=== PATIENT | male | born 1955 | race Caucasian/White ===

== ENCOUNTER → 2017-08-15 | Outpatient (CLI) | payer BC ==
[~2017-08-15] MED LIST: ASPIR 8181 MG PO; BYSTOLIC5 MG PO; CRESTOR5 MG PO; DIOVAN160 MG PO; DIOVAN320 MG PO; DIOVAN80 MG PO; LOVAZA1 GM PO; METOPROLOL SUCC25 MG PO; TRIAMTERENE PO
--- NOTE | 2017-08-15 16:16 | Diagnostic Imaging Report ---
PROCEDURE:X-RAY ABDOMEN - KUB COMPARISON:Abdomen x-ray 08/07/15, abdomen x-ray 02/04/17 INDICATIONS:KIDNEY STONE FINDINGS: Calcifications: There are 3 calcifications in the expected location of the right renal shadow. These are similar in position and size compared to the 2015 x-ray. The largest measures 4 mm. No new calculi are identified. There no calcifications related to the course of the ureter. 2 calcifications in the expected location of the left renal shadow. The larger measures 4 mm. The smaller measures 2 mm. These are not conclusively identified on previous exam. BOWEL GAS PATTERN:Non-specific bowel gas pattern. No dilated bowel loops. CALCIFICATIONS:There are atherosclerotic calcifications of the aorta and iliac arteries. Bones: Unremarkable for age. Lung bases: Clear. CONCLUSION: Three calculi in the expected location of the right kidney are stable. Two calculi in the expected location of the left kidney appear to be new. Dictated by: Christina Sierra M.D. on 08/15/2017 at 16:24 Electronically approved by: Christina Sierra M.D. on 08/15/2017 at 16:24
== END ==
LOC: RAD 14:48
PROVIDERS: ATTEND Urology
DX: N20.0 Calculus of kidney (principal)
CPT/HCPCS: 74000

== ENCOUNTER → 2018-05-29 | Outpatient (CLI) | payer BC ==
[2018-05-29 09:02] LABS: ALANINE AMINOTRANSFERASE 34 IU/L (0-55); ALBUMIN 3.9 g/dL (3.5-5.0); ALKALINE PHOSPHATASE 48 IU/L (40-150); ANION GAP 13.8 mmol/L (8-16); BILIRUBIN,DIRECT 0.8 mg/dL (0.0-0.5); BLOOD UREA NITROGEN 21 mg/dL (7-26); BUN/CREATININE RATIO 19 (6-25); CALCIUM 9.5 mg/dL (8.4-10.2); CARBON DIOXIDE 25 mmol/L (22-29); CHLORIDE 107 mmol/L (98-107); CHOL/HDL RATIO 2.4 (3.9-4.7); CHOLESTEROL 131 MD/DL (0-199); CREATINE KINASE 148 IU/L (30-200); EST GLOMERULAR FILTRATION RATE > 60 ML/MIN (60-); GLUCOSE 133 mg/dL (74-118); HDL CHOLESTEROL 54 MG/DL (40-60); LDL CHOLESTEROL 57 MG/DL (60-130); POTASSIUM 4.8 mmol/L (3.5-5.1); SODIUM 141 mmol/L (136-145); TRIGLYCERIDES 99 MG/DL (0-149)
--- NOTE | 2018-05-29 09:14 | Diagnostic Imaging Report ---
PROCEDURE: Frontal and lateral views of the chest. COMPARISON: Chest radiograph 06/24/17. INDICATIONS: CHEST COMPLAINT FINDINGS: Lines/tubes: None. Lungs: The lungs are well inflated and clear. There is no evidence of pneumonia or pulmonary edema. Pleura: There is no pleural effusion or pneumothorax. Heart and mediastinum: The cardiomediastinal silhouette is unchanged. Moderate hiatal hernia is present. Bones: No acute bony abnormality. IMPRESSION: No acute radiographic abnormality. Dictated by: MIGUEL CORONADO M.D. on 05/29/2018 at 9:22 Electronically approved by: MIGUEL CORONADO M.D. on 05/29/2018 at 9:22
== END ==
LOC: RAD 08:15
PROVIDERS: ATTEND Internal Medicine Cardiovascular Disease
DX: J98.09 Other diseases of bronchus, not elsewhere classified (principal); E78.5 Hyperlipidemia, unspecified; R73.03 Prediabetes; R00.1 Bradycardia, unspecified
CPT/HCPCS: 36415; 71046; 80048; 80061; 80076; 82550; 83036

== ENCOUNTER → 2020-08-30 | Outpatient (CLI) | payer MEDICARE | LOC: US 15:35 | PROVIDERS: ATTEND Urology | DX: N50.812 Left testicular pain (principal); N50.811 Right testicular pain; G89.29 Other chronic pain | CPT/HCPCS: 76870; 93976 ==

== ENCOUNTER → 2020-09-27 | Outpatient (CLI) | payer MEDICARE ==
[2020-09-27 15:21] LABS: ALANINE AMINOTRANSFERASE 23 IU/L (0-55); ALBUMIN 4.3 g/dL (3.5-5.0); ALBUMIN/GLOBULIN RATIO 1.3 (0.8-2.0); ALKALINE PHOSPHATASE 52 IU/L (40-150); ANION GAP 16.5 mmol/L (8-16); BLOOD UREA NITROGEN 32 mg/dL (7-26); BUN/CREATININE RATIO 29 (6-25); CALCIUM 9.2 mg/dL (8.4-10.2); CARBON DIOXIDE 23 mmol/L (22-29); CHLORIDE 105 mmol/L (98-107); CHOL/HDL RATIO 3.3 (3.9-4.7); CHOLESTEROL 153 MD/DL (0-199); CREATINE KINASE 194 IU/L (30-200); EST GLOMERULAR FILTRATION RATE > 60 ML/MIN (60-); GLUCOSE 103 mg/dL (74-118); HDL CHOLESTEROL 46 MG/DL (40-60); LDL CHOLESTEROL 93 MG/DL (60-130); POTASSIUM 4.5 mmol/L (3.5-5.1); SODIUM 140 mmol/L (136-145); TRIGLYCERIDES 72 MG/DL (0-149)
== END ==
LOC: LAB 14:42
PROVIDERS: ATTEND Internal Medicine Cardiovascular Disease
DX: E78.5 Hyperlipidemia, unspecified (principal); R55 Syncope and collapse; I10 Essential (primary) hypertension; R73.03 Prediabetes; R00.1 Bradycardia, unspecified
CPT/HCPCS: 36415; 80053; 80061; 82550; 83036

== ENCOUNTER 2021-02-07 17:07 | Emergency (ER) | payer MEDICARE ==
[~2021-02-07] VITALS: Ht 170.2 cm; Wt 73.5 kg
== END 2021-02-07 18:00 | disposition home or self-care (01) ==
LOC: FSED 17:50
DX: T20.46XA Corrosion of unspecified degree of forehead and cheek, initial encounter (principal); T49.4X1A Poisoning by keratolytics, keratoplastics, and other hair treatment drugs and preparations, accidental (unintentional), initial encounter; Y92.008 Other place in unspecified non-institutional (private) residence as the place of occurrence of the external cause
CPT/HCPCS: 99282

== ENCOUNTER → 2022-03-19 | Outpatient (CLI) | payer MEDICARE, OTHER ==
[2022-03-19 14:24] LABS: ALBUMIN 3.9 g/dL (3.5-5.0); ANION GAP 13.8 mmol/L (8-16); BILIRUBIN,DIRECT 0.6 mg/dL (0.0-0.5); CALCIUM 8.8 mg/dL (8.4-10.2); CHOL/HDL RATIO 3.6 (3.9-4.7); CREATININE, SERUM 0.92 mg/dL (0.72-1.25); POTASSIUM 3.8 mmol/L (3.5-5.1)
== END ==
LOC: LAB 13:45
PROVIDERS: ATTEND Internal Medicine Cardiovascular Disease
DX: R55 Syncope and collapse (principal); R73.03 Prediabetes; I10 Essential (primary) hypertension; E78.5 Hyperlipidemia, unspecified
CPT/HCPCS: 36415; 80048; 80061; 80076; 82550; 83036

== ENCOUNTER 2022-06-30 11:42 | Emergency (ER) | payer MEDICARE, OTHER ==
[~2022-06-30] VITALS: Ht 170.2 cm; Wt 73.5 kg
[2022-06-30] MEDS ORDERED: METFORMIN HCL500 MG PO (11:57)
[2022-06-30] MEDS ORDERED: JARDIANCE10 MG (11:57)
[2022-06-30] MEDS ORDERED: MELOXICAM7.5 MG PO (12:55)
== END 2022-06-30 13:13 | disposition home or self-care (01) ==
LOC: FSED 11:49
DX: S70.01XA Contusion of right hip, initial encounter (principal); W01.0XXA Fall on same level from slipping, tripping and stumbling without subsequent striking against object, initial encounter; Y93.01 Activity, walking, marching and hiking; Y92.89 Other specified places as the place of occurrence of the external cause; I10 Essential (primary) hypertension; E11.9 Type 2 diabetes mellitus without complications; E78.5 Hyperlipidemia, unspecified
CPT/HCPCS: 72170; 99283

== ENCOUNTER → 2022-07-17 | Outpatient (CLI) | payer MEDICARE, OTHER ==
[~2022-07-17] MED LIST changes: +JARDIANCE10 MG; +MELOXICAM7.5 MG PO; +METFORMIN HCL500 MG PO
[2022-07-17 11:48] LABS: ALBUMIN 4.3 g/dL (3.5-5.0); BILIRUBIN,DIRECT 0.7 mg/dL (0.0-0.5); CHOL/HDL RATIO 3.7 (3.9-4.7)
== END ==
LOC: RAD 10:37
PROVIDERS: ATTEND Internal Medicine Cardiovascular Disease
DX: R06.89 Other abnormalities of breathing (principal); R73.03 Prediabetes; E78.5 Hyperlipidemia, unspecified
CPT/HCPCS: 36415; 71046; 80061; 80076; 82550; 83036

== ENCOUNTER → 2022-10-08 | Outpatient (CLI) | payer MEDICARE, OTHER | LOC: RAD 10:10 | PROVIDERS: ATTEND Internal Medicine Cardiovascular Disease | DX: J98.09 Other diseases of bronchus, not elsewhere classified (principal) | CPT/HCPCS: 71046 ==

== ENCOUNTER → 2022-10-10 | Outpatient (CLI) | payer MEDICARE, OTHER ==
[2022-10-10 11:36] LABS: BILIRUBIN,DIRECT 0.7 mg/dL (0.0-0.5); CHOL/HDL RATIO 2.3 (3.9-4.7)
== END ==
LOC: LAB 09:11
PROVIDERS: ATTEND Internal Medicine Cardiovascular Disease
DX: E78.5 Hyperlipidemia, unspecified (principal)
CPT/HCPCS: 36415; 80061; 80076; 82550

== ENCOUNTER 2023-01-14 08:16 | Inpatient (IN) | payer MEDICARE, OTHER ==
[~2023-01-14] VITALS: Ht 170.2 cm; Wt 69.9 kg
[2023-01-14] MEDS ORDERED: BYSTOLIC10 MG PO (08:38)
[2023-01-14] MEDS ORDERED: IRBESARTAN150 MG PO (08:39)
[2023-01-14] MEDS ORDERED: ONDANSETRON HCL INJ 2MG/ML 2ML 2 MG/ML VIAL IV STA (08:54)
[2023-01-14] MEDS ORDERED: DONNATAL/LIDOCAINE/MAALOX 30 ML SUSP PO ONE (09:00)
[2023-01-14] MEDS ORDERED: LIDOCAINE VISC 2% SOLN 15 ML UDC ONE (09:01)
[2023-01-14] MEDS ORDERED: MAGNESIUM/ALUMINUM/SIMETHICONE 30 ML UDC ONE (09:01)
[2023-01-14] MEDS ORDERED: BELLADONNA ALK/PHENOBARBITAL 5 ML UDC ONE (09:01)
[2023-01-14] MEDS ORDERED: IOPAMIDOL 370 MG/ML 100 ML INFUS..BTL INJ ONE (09:13)
[2023-01-14] MEDS ORDERED: SODIUM CHLORIDE 0.9% 100 ML ONE (09:13)
[2023-01-14] MEDS ORDERED: SODIUM CHLORIDE 0.9% 1000ML 1,000 ML IV ONE (10:15)
[2023-01-14] MEDS ORDERED: SODIUM CHLORIDE 0.9% 1000ML 1,000 ML ONE ×2 (10:20→12:33)
[2023-01-14] MEDS ORDERED: Morphine 4mg INJECTION 4 MG/ML INJ ONE (10:24)
[2023-01-14] MEDS ORDERED: KETOROLAC TROMETHAMINE 30 MG/ML VIAL IV STA (11:07)
[2023-01-14] MEDS ORDERED: KETOROLAC TROMETHAMINE 30 MG/ML VIAL ONE ×2 (11:08→12:25)
[2023-01-14] MEDS ORDERED: SODIUM CHLORIDE 0.9% 1000ML 1,000 ML IV SCH (12:00)
[2023-01-14] MEDS ORDERED: Morphine 4mg INJECTION 4 MG/ML INJ IV PRN (12:00)
[2023-01-14] MEDS ORDERED: POVIDONE IODINE 0.05% 0.05 % ML PO ONE (12:25)
[2023-01-14] MEDS ORDERED: NEOSTIGMINE 1 MG/ML 10ML VIAL ONE (12:25)
[2023-01-14] MEDS ORDERED: GLYCOPYRROLATE INJ 0.2 MG/ML VIAL ONE (12:25)
[2023-01-14] MEDS ORDERED: DEXAMETHASONE SOD PHOS INJ 4 MG/ML SDV ONE (12:25)
[2023-01-14] MEDS ORDERED: PROPOFOL IV EMULSION 10 MG/ML 20 ML VIAL ONE (12:25)
[2023-01-14] MEDS ORDERED: ONDANSETRON HCL INJ 2MG/ML 2ML 2 MG/ML VIAL ONE (12:25)
[2023-01-14] MEDS ORDERED: LIDOCAINE HCL 2% LOCAL INJ 5 ML SDV VIAL INJ ONE (12:25)
[2023-01-14] MEDS ORDERED: ROCURONIUM BROMIDE 10 MG/ML 5ML VIAL IV ONE (12:25)
[2023-01-14] MEDS ORDERED: PIPERACILLIN/TAZOBACTAM 3.375 GM VIAL ONE (12:33)
[2023-01-14 17:59] VITALS: BP 151/63; PULSE 42; RESP 19; TEMP 99.1; O2SAT 98
[2023-01-14 18:01] VITALS: BP 151/63; PULSE 42; RESP 19; TEMP 99.1; O2SAT 98
[2023-01-14] MEDS: KETOROLAC TROMETHAMINE 30 MG/ML VIAL IV PRN (18:17)
[2023-01-14 20:00] VITALS: BP 112/68; PULSE 49; RESP 17; TEMP 99.6; O2SAT 94
[2023-01-14] MEDS ORDERED: DEXTROSE 50% SYRINGE 50 ML IV PRN (21:00)
[2023-01-14] MEDS ORDERED: SIMETHICONE 80 MG CHEW PO PRN (21:00)
[2023-01-14] MEDS ORDERED: ALBUTEROL SULF 0.083% NEB SOLN 3 ML NEB NEB PRN (21:00)
[2023-01-14] MEDS ORDERED: ACETAMINOPHEN 325 MG TAB PO PRN (21:00)
[2023-01-14] MEDS ORDERED: HYDRALAZINE HCL 20 MG/ML VIAL IV PRN (21:00)
[2023-01-14] MEDS ORDERED: LIDOCAINE 4% PATCH TP PRN (21:00)
[2023-01-14] MEDS ORDERED: DIPHENHYDRAMINE HCL 25 MG CAP PO PRN (21:00)
[2023-01-14] MEDS ORDERED: DOCUSATE SODIUM 100 MG CAP PO PRN (21:00)
[2023-01-14] MEDS ORDERED: BENZONATATE 100 MG CAP PO PRN (21:00)
[2023-01-14] MEDS ORDERED: POTASSIUM CHLORIDE 20 MEQ TAB CR PO PRN (21:00)
[2023-01-14] MEDS ORDERED: ONDANSETRON HCL INJ 2MG/ML 2ML 2 MG/ML VIAL IV PRN (21:00)
[2023-01-14] MEDS ORDERED: MELATONIN 5 MG TABLET PO PRN (21:00)
[2023-01-14] MEDS ORDERED: IPRATROPIUM BROMIDE 0.02% 2.5 ML NEB NEB PRN (21:15)
[2023-01-14] MEDS: DEXTROSE 5%/0.9% SOD CHL 1,000 ML IV SCH (21:51)
[2023-01-15] VITALS (8 sets, daily range): BP systolic 114–159; BP diastolic 56–77; PULSE 43–56; RESP 17–29; TEMP 97.6–99; O2SAT 90–100
[2023-01-15] MEDS ORDERED: Morphine 4mg INJECTION 4 MG/ML INJ IV PRN
[2023-01-15] MEDS: KETOROLAC TROMETHAMINE 30 MG/ML VIAL IV PRN (00:34)
[2023-01-15 04:47] LABS: BASOPHILS % 0.2 % (0.0-1.0); EOSINOPHILS % 0.1 % (0.0-6.0); HEMATOCRIT 47.8 % (38.2-49.6); HEMOGLOBIN 16.3 g/dL (14.0-18.0); LYMPHOCYTES # (AUTO) 1.1 (1.0-3.2); LYMPHOCYTES % 7.8 % (18.0-39.1); MEAN CORPUSCULAR HEMOGLOBIN 29.7 pg (28-32); MEAN CORPUSCULAR HGB CONC 34.1 g/dL (31-35); MEAN CORPUSCULAR VOLUME 87.1 fL (81-99); MONOCYTES # (AUTO) 1.4 (0.2-0.8); MONOCYTES % 10.3 % (4.4-11.3); NEUTROPHILS % 81.4 % (38.7-80.0); PLATELET COUNT 127 x10e3/uL (140-360); RED BLOOD COUNT 5.49 x10e6/uL (4.3-5.7); RED CELL DISTRIBUTION WIDTH 13.5 % (11.7-14.4)
[2023-01-15 05:05] LABS: CALCIUM 8.4 mg/dL (8.4-10.2); CREATININE, SERUM 1.02 mg/dL (0.72-1.25)
[2023-01-15] MEDS: PANTOPRAZOLE SOD 40 MG TABEC PO SCH (07:30)
[2023-01-15] MEDS ORDERED: BUPIVACAINE 0.5%/EPI 30 ML SDV INJ ONE (11:00)
[2023-01-15] MEDS ORDERED: PIPERACILLIN/TAZOBACTAM 3.375 GM VIAL ONE (12:17)
[2023-01-15] MEDS ORDERED: MIDAZOLAM HCL 2 MG/2 ML VIAL ONE (12:55)
[2023-01-15] MEDS ORDERED: FENTANYL CITRATE/PF 100MCG/2 ML INJ ONE (12:55)
[2023-01-15] MEDS ORDERED: KETAMINE HCL INJ 50 MG/ML 10 ML VIAL ONE (12:55)
[2023-01-15] MEDS ORDERED: HYDROMORPHONE 1MG/1ML INJ IV PRN (13:45)
[2023-01-15] MEDS ORDERED: HYDROCODONE/APAP 7.5MG-325MG 1 EA TAB PO PRN (13:45)
[2023-01-15] MEDS ORDERED: METOCLOPRAMIDE HCL 10 MG/2ML VIAL ONE (13:53)
[2023-01-15] MEDS ORDERED: ONDANSETRON HCL INJ 2MG/ML 2ML 2 MG/ML VIAL ONE (13:53)
[2023-01-15] MEDS: DEXTROSE 5%/0.9% SOD CHL 1,000 ML IV SCH ×2 (15:01→17:25)
[2023-01-15] MEDS ORDERED: ENOXAPARIN SOD INJ 40 MG/0.4 ML SYR SC SCH (17:00)
[2023-01-16] VITALS (7 sets, daily range): BP systolic 113–138; BP diastolic 62–72; PULSE 38–82; RESP 16–18; TEMP 97.6–98; O2SAT 90–100
[2023-01-16] MEDS: KETOROLAC TROMETHAMINE 30 MG/ML VIAL IV PRN ×2 (01:03→08:43)
[2023-01-16] MEDS: DEXTROSE 5%/0.9% SOD CHL 1,000 ML IV SCH ×2 (01:05→11:05)
[2023-01-16 04:51] LABS: BASOPHILS % 0.2 % (0.0-1.0); HEMATOCRIT 43.9 % (38.2-49.6); HEMOGLOBIN 14.7 g/dL (14.0-18.0); LYMPHOCYTES # (AUTO) 0.7 (1.0-3.2); MEAN CORPUSCULAR HEMOGLOBIN 29.8 pg (28-32); MEAN CORPUSCULAR HGB CONC 33.5 g/dL (31-35); MONOCYTES # (AUTO) 0.8 (0.2-0.8); MONOCYTES % 7.3 % (4.4-11.3); NEUTROPHILS # (AUTO) 9.5 (2.1-6.9); PLATELET COUNT 106 x10e3/uL (140-360); RED BLOOD COUNT 4.93 x10e6/uL (4.3-5.7); RED CELL DISTRIBUTION WIDTH 13.2 % (11.7-14.4)
[2023-01-16 05:12] LABS: ALBUMIN 2.8 g/dL (3.5-5.0); ALBUMIN/GLOBULIN RATIO 1.1 (0.8-2.0); ANION GAP 11.2 mmol/L (8-16); CALCIUM 8.2 mg/dL (8.4-10.2); CREATININE, SERUM 0.87 mg/dL (0.72-1.25); POTASSIUM 4.2 mmol/L (3.5-5.1)
[2023-01-16] MEDS: PANTOPRAZOLE SOD 40 MG TABEC PO SCH (08:29)
[2023-01-16] MEDS ORDERED: ONDANSETRON HCL 4 MG ORAL DISINTEGRATING TAB PO PRN (08:45)
== END 2023-01-16 14:00 | disposition home or self-care (01) | DRG 418 ==
LOC: FSED 08:21 → ERHOLD 12:22 → MED/SURG 16:38
PROVIDERS: ADMIT Internal Medicine; ATTEND Internal Medicine
PROC: 0FT44ZZ Resection of Gallbladder, Percutaneous Endoscopic Approach (ICD-10-PCS; principal; 2023-01-15 12:06)
PROC: 0WQF4ZZ Repair Abdominal Wall, Percutaneous Endoscopic Approach (ICD-10-PCS; 2023-01-15 12:06)
DX: K80.00 Calculus of gallbladder with acute cholecystitis without obstruction (principal); K43.6 Other and unspecified ventral hernia with obstruction, without gangrene; R00.1 Bradycardia, unspecified; I10 Essential (primary) hypertension; E11.9 Type 2 diabetes mellitus without complications; K44.9 Diaphragmatic hernia without obstruction or gangrene; F41.9 Anxiety disorder, unspecified; G47.00 Insomnia, unspecified; Z87.442 Personal history of urinary calculi; E78.00 Pure hypercholesterolemia, unspecified; Z79.84 Long term (current) use of oral hypoglycemic drugs
CPT/HCPCS: 0223U; 36415; 71275; 74174; 76705; 80048; 80053; 80076; 82553; 82948; 83690; 84484; 85025; 88302; 88304; 93005; 93306; 94799; 96374; 96375; 99284; C1766; J1100; J1885; J2001; J2250; J2270; J2405; J2543; J2710; J2765; J7030; J7042; J7050; Q9967

== ENCOUNTER → 2024-03-10 | Outpatient (REF) | payer MEDICARE, OTHER ==
[~2024-03-10] MED LIST changes: +ACETAMINOPHEN325 M1 PO; +BACTRIM DS TAB1 EACH PO; +BYSTOLIC10 MG PO; +CRESTOR10 MG PO; +FAMOTIDINE20 MG PO; +FLOMAX0.4 MG PO; +GLIPIZIDE5 MG PO; +IOPAMIDOL 370 MG/ML 100 ML INFUS..BTL INJ ONE; +IRBESARTAN150 MG PO; +MECLIZINE HCL12.5 MG PO; +METRONIDAZOLE500 MG PO; +ONDANSETRON ODT4 MG PO; +PROCHLORPERAZINE5 MG PO; +SIMETHICONE80 MG PO; +SODIUM CHLORIDE 0.9% 100 ML ONE; +ZETIA10 MG PO
[2024-03-10 17:27] LABS: CREATININE, SERUM 1.24 mg/dL (0.72-1.25)
== END ==
LOC: CT 16:39
PROVIDERS: ATTEND Pediatrics
DX: R42 Dizziness and giddiness (principal)
CPT/HCPCS: 36415; 70496; 70498; 82565; 84520; J7050; Q9967